=== PATIENT | female | born 1960 | race Caucasian/White ===

== ENCOUNTER 2018-04-25 14:30 | Emergency (ER) | payer SELFPAY ==
[2018-04-25] MEDS: IBUPROFEN 600 MG TAB PO (15:27)
[2018-04-25] MEDS: ACETAMINOPHEN 325 MG TAB PO (15:27)
[2018-04-25] MEDS: NICARDipine HCL 30 MG CAPSULE PO (16:14)
== END 2018-04-25 17:13 | disposition home or self-care (01) ==
LOC: FTE 14:30
DX: S52.121A Displaced fracture of head of right radius, initial encounter for closed fracture (principal); W18.39XA Other fall on same level, initial encounter; Y92.9 Unspecified place or not applicable
CPT/HCPCS: 29125; 73080-RT; 73090-RT; 73110-RT; 99283-25